=== PATIENT | female | born 1960 | race Caucasian/White ===

== ENCOUNTER → 2021-01-25 | Outpatient (CLI) | payer OTHER | LOC: LAB SHORT 08:00 → LAB 08:00 | DX: L60.2 Onychogryphosis (principal); B35.1 Tinea unguium | CPT/HCPCS: 88305; 88312 ==

== ENCOUNTER → 2021-04-22 | Outpatient (CLI) | payer OTHER | END | disposition home or self-care (01) | LOC: LAB SHORT 10:52 | DX: B07.9 Viral wart, unspecified (principal) | CPT/HCPCS: 88305; 88312 ==

== ENCOUNTER → 2021-12-28 | Outpatient (CLI) | payer BC, OTHER | END | disposition home or self-care (01) | LOC: LAB SHORT 13:50 → LAB 13:50 | DX: S51.811A Laceration without foreign body of right forearm, initial encounter (principal) | CPT/HCPCS: 87070; 87075; 87077; 87147; 87186; 87205 ==

== ENCOUNTER → 2022-07-05 | Outpatient (CLI) | payer BC, OTHER | END | disposition home or self-care (01) | LOC: LAB SHORT 18:59 → LAB 18:59 | DX: N39.0 Urinary tract infection, site not specified (principal) | CPT/HCPCS: 87077; 87086; 87186 ==

== ENCOUNTER → 2022-10-18 | Outpatient (CLI) | payer BC, OTHER ==
[2022-10-20 15:10] LABS: HPV 16 Negative (Negative); HPV 18 Negative (Negative); HPV OTHER HR TYPES Negative (Negative)
== END | disposition home or self-care (01) ==
LOC: LAB 15:30 → LAB SHORT 15:30
PROVIDERS: Family Medicine
DX: Z12.4 Encounter for screening for malignant neoplasm of cervix (principal)
CPT/HCPCS: 87624; G0145

== ENCOUNTER → 2024-05-10 | Outpatient (CLI) | payer BC, OTHER ==
[~2024-05-10] MED LIST: ACET325; NAPR220 PO
== END ==
LOC: LAB 16:49 → LAB SHORT 16:49
DX: N39.0 Urinary tract infection, site not specified (principal)
CPT/HCPCS: 87077; 87086; 87186

== ENCOUNTER 2024-06-05 06:47 | Day surgery (SDC) | payer BC, OTHER ==
[~2024-06-05] VITALS: Ht 162.6 cm; Wt 88.8 kg
[2024-06-05] VITALS (17 sets, daily range): BP systolic 94–147; BP diastolic 50–76
[~2024-06-05 06:47] MED LIST changes: +ACET325 PO; +Acetaminophen 500 MG Tab PO SCH; +CeFAZolin Sodium 2,000 MG VIAL ONE; +CeFAZolin Sodium 2,000 MG in NS 100 ML IV SCH; +Chlorhexidine Mouth Care 15 ML UDC MT SCH; +Lactated Ringer's 1,000 ML IV SCH; +OxyCODONE HCL 10 MG TABCR PO SCH; +Tranexamic Acid 100 ML IV SCH
[2024-06-05] MEDS ORDERED: Promethazine HCl 25 MG Tab PO PRN (07:20)
[2024-06-05] MEDS ORDERED: Midazolam HCl 1MG / ML 2ML Vial IV ONE (07:20)
[2024-06-05] MEDS ORDERED: Prochlorperazine Edisylate 10 mg Vial IV PRN (07:25)
[2024-06-05] MEDS ORDERED: Lactated Ringer's 1,000 ML IV SCH (07:25)
[2024-06-05] MEDS ORDERED: HYDROmorphone HCl/Pf 1MG SYR IV PRN (07:25)
[2024-06-05] MEDS ORDERED: OxyCODONE HCL 5 MG TAB PO PRN ×2 (07:25)
[2024-06-05] MEDS ORDERED: FLU VACC TS2024-25(6MOS UP)/PF 45 MCG/0.5 ML SYRINGE IM PRN (07:30)
[2024-06-05] MEDS ORDERED: Ondansetron HCl 2 MG / ML 2ML Vial IV PRN (07:30)
[2024-06-05] MEDS ORDERED: Metoclopramide HCl 5MG / ML 2ML Vial IV PRN (07:30)
[2024-06-05] MEDS ORDERED: Bisacodyl 10 MG Supp PR PRN (07:30)
[2024-06-05] MEDS ORDERED: Magnesium Hydroxide Conc 10 ML UDC PO PRN (07:30)
[2024-06-05] MEDS ORDERED: DiphenhydrAMINE HCL 25 MG Cap PO PRN (07:30)
--- NOTE | 2024-06-05 07:36 | NUR ---
History, Chart, Medications and Allergies reviewed before start of procedure.Patient confirms NPO status and agrees with scheduled surgery. Pre-Op teaching done. Pt verbalizes understanding. PT BELONGINGS TAKEN TO PACU
[2024-06-05] MEDS ORDERED: propofoL 50 ML IV ONE ×2 (07:51→09:05)
[2024-06-05] MEDS ORDERED: Ropivacaine 0.5% HCl/Pf 123.125 MG,EPINEPHrine HCL 0.25 MG,Ketorolac Tromethamine 15 MG... INFIL SCH (07:55)
[2024-06-05] MEDS ORDERED: Vancomycin HCL 1,000 MG in NS 250 ML IV SCH (07:55)
[2024-06-05] MEDS ORDERED: Acetaminophen 500 MG Tab PO SCH (08:00)
[2024-06-05] MEDS ORDERED: Phenylephrine HCl 100 MCG/ML-NS 10MLSYR (1MG/10ML) ONE (08:03)
[2024-06-05] MEDS ORDERED: ePHEDrine Sulfate 50 MG/ML 1ML Injection ONE (08:09)
[2024-06-05] MEDS ORDERED: Dexamethasone Sod Phos 10 MG/ML 1ML VIAL ONE (08:12)
[2024-06-05] MEDS ORDERED: Ketorolac Tromethamine 30mg Vial ONE (08:12)
[2024-06-05] MEDS ORDERED: Ondansetron HCl 2 MG / ML 2ML Vial ONE ×2 (08:12→10:37)
[2024-06-05] MEDS ORDERED: propofoL 20 ML IV ONE ×2 (08:24→09:44)
--- NOTE | 2024-06-05 08:48 | NUR ---
06/05/24 0848 Evette Camilo NOTED: SCRATCHES TO PTS LEFT INNER THIGH
[2024-06-05] MEDS ORDERED: Docusate Sodium 100 MG Cap PO SCH (09:00)
[2024-06-05] MEDS ORDERED: Vancomycin HCl 1000 MG ADDvantage ONE (09:30)
[2024-06-05] MEDS ORDERED: Metoclopramide HCl 5MG / ML 2ML Vial ONE (10:54)
--- NOTE | 2024-06-05 11:43 | NUR ---
POST-OP ARRIVAL TO ROOM @ 1130 VITALS ARE STABLE, DENIES PAIN/NAUSEA. NUMBNESS TO BILAT LE, UNABLE TO WIGGLE TOES AT THIS TIME. DRESSING INTACT AND CLEAN.ICE, SCDS, AND TEDS IN PLACE. CALL LIGHT IN REACH.
[2024-06-05] MEDS ORDERED: CeFAZolin Sodium 2,000 MG in NS 100 ML IV SCH (16:00)
--- NOTE | 2024-06-05 17:59 | NUR ---
POST-OP PATIENT UP WITH THERAPY TO WALK IN ROOM, REPORTS SLIGHT NUMBNESS IN BOTTOM OF R FOOT. DRESSING WITH TELFA, TEGADERM, C/D/I. DENIES PAIN. DENIES NAUSEA. UP TO VOID OVER 900 ML OUTPUT. IN CHAIR FOR DINNER. PLAN TO WORK WITH THERAPY IN AM AND DC HOME. VITALS ARE STABLE. CALL LIGHT IN REACH.
[2024-06-05] MEDS ORDERED: Ketorolac Tromethamine 15mg Vial IV SCH (18:00)
[2024-06-05] MEDS ORDERED: Vancomycin HCL 1,000 MG in NS 250 ML IV ONE (20:00)
[2024-06-06 03:54] VITALS: BP 111/62
[2024-06-06 05:13] LABS: BASOPHILS ABSOLUTE AUTO 0.03 K/mm3 (0.00-0.23); BASOPHILS PERCENT AUTO 0 % (0-2); EOSINOPHILS ABSOLUTE AUTO 0.01 K/mm3 (0.00-0.68); EOSINOPHILS PERCENT AUTO 0 % (0-6); Hematocrit 30.2 % (33.0-51.0); Hemoglobin 10.4 g/dL (11.5-16.0); IMMATURE GRAN ABSOLUTE AUTO 0.04 K/mm3 (0.00-0.10); IMMATURE GRAN PERCENT AUTO 0 % (0-1); LYMPHOCYTES ABSOLUTE AUTO 1.12 K/mm3 (0.84-5.20); LYMPHOCYTES PERCENT AUTO 10 % (21-46); MONOCYTES ABSOLUTE AUTO 1.15 K/mm3 (0.16-1.47); MONOCYTES PERCENT AUTO 10 % (4-13); Mean Corpuscular HGB 30.5 pg (26.0-34.0); Mean Corpuscular HGB Conc 34.4 g/dL (31.5-36.5); Mean Corpuscular Volume 89 fL (80-100); Mean Platelet Volume 9.7 fL (9.1-12.4); NEUTROPHILS ABSOLUTE AUTO 8.98 K/mm3 (1.96-9.15); NEUTROPHILS PERCENT AUTO 79 % (41-73); Platelet Count 271 K/mm3 (150-400); RDW Coefficient Variation 13.7 % (11.7-14.2); RDW Standard Deviation 45.1 fL (35.1-46.3); Red Blood Cell Count 3.41 M/mm3 (3.80-5.20); White Blood Cell Count 11.33 K/mm3 (4.00-11.30)
[2024-06-06 05:29] LABS: Bun/Creatinine Ratio 24.1 (12.0-20.0); Calcium, Blood 8.4 mg/dL (8.5-10.1); Creatinine, Blood 0.66 mg/dL (0.40-1.00); Magnesium, Blood 2.1 mg/dL (1.6-2.4); Potassium, Blood 4.1 mmol/L (3.5-5.5)
--- NOTE | 2024-06-06 05:33 | NUR ---
NOC SUMMARY- PT IS VOIDING AND AMBULATING. PT TOLERATING PO. PT PAIN MANAGED WELL PER MAY. PT DRESSINGS ARE C/D/I. PT CURRENTLY RESTING QUIETLY. CALL LIGHT IN REACH.
--- NOTE | 2024-06-06 07:16 | NUR ---
AM ASSESSMENT PT POD 1 R POSTERIOR HIP. DANIEL WRAP TO R HIP C/D/I. PT REPORTS FULL SENSATION TO BLE. STATES PAIN 2/10 FOLLOWING PAIN MEDICATION. LUNGS CLEAR T/O, DENIES CP OR SOB. PT UP TO CHAIR, REPORTS THAT SHE HAS BEEN AMBULATING WITH ASSISTANCE AND FWW, VOIDING W/O DIFFICULTY.
[2024-06-06 07:49] VITALS: BP 132/68
[2024-06-06] MEDS ORDERED: Trimethoprim/Sulfamethoxazole DS Tab PO SCH (09:00)
[2024-06-06] MEDS ORDERED: Aspirin 81 MG Chew PO SCH (09:00)
[2024-06-06] MEDS ORDERED: ACET500 PO (10:08)
[2024-06-06] MEDS ORDERED: ASPI81CH PO (10:15)
[2024-06-06] MEDS ORDERED: OXAYDO5 M1 PO (10:16)
[2024-06-06] MEDS ORDERED: SULTRIDS PO (10:16)
[2024-06-06] MEDS ORDERED: ONDA4ODT PO (10:17)
--- NOTE | 2024-06-06 13:23 | NUR ---
DISCHARGE PT DISCHARGED HOME FROM UNIT AT APROX 1323. PT GIVEN WRITTEN AND VERBAL DISCHARGE INSTRUCTIONS AND VERBALIZED UNDERSTANDING OF THESE INSTRUCTIONS. IV REMOVED, TOLERATED WELL. PT REPORTS THAT SHE PICKED UP ALL OF HER PERSCRIPTIONS PRIOR TO SURGERY. WC TO PRIVATE VEHICLE, PT TX WITH MIN ASSIST FROM WC TO PICKUP.
== END 2024-06-06 13:17 | disposition home or self-care (01) ==
LOC: ORSCMMR 06:47 → ORD 07:30 → SURS 11:23 → ORSCMMR 06-06 13:17
PROVIDERS: Orthopaedic Surgery
PROC: 0SR90JA Replacement of Right Hip Joint with Synthetic Substitute, Uncemented, Open Approach (ICD-10-PCS; principal; 2024-06-05 07:30)
DX: M16.0 Bilateral primary osteoarthritis of hip (principal); Z87.891 Personal history of nicotine dependence; E66.9 Obesity, unspecified; Z68.33 Body mass index [BMI] 33.0-33.9, adult
CPT/HCPCS: 36415; 72170; 80048; 83735; 85025; 97110; 97116; 97161; 97165; 97530; 97535; A9270; C1713; C1776; J0171; J0690; J0735; J1100; J1885; J2250; J2371; J2405; J2704; J2765; J2795; J3370; J7050; J7120